=== PATIENT | male | born 1940 | race Caucasian/White ===

== ENCOUNTER → 2020-05-02 10:22 | Outpatient (CLI) | payer MEDICARE, BC, SELFPAY ==
--- NOTE | 2020-05-03 04:43 | DI.NM.S_ITS ---
DATE OF SERVICE: 05/02/2020 PROCEDURE: Exercise perfusion study. INDICATION: Ventricular tachycardia, CAD, hypertension, paroxysmal AFib. RADIOPHARMACEUTICAL: 25.4 millicurie technetium-99m Myoview IV was injected at stress and 11.5 millicurie technetium-99m Myoview IV was injected at rest. EXERCISE CARDIAC STRESS: The patient walked on [place] protocol for 3 minutes 17 seconds and achieved 90 percent of target heart rate. Baseline blood pressure 120/70. Peak blood pressure 200/80, suggestive of hypertensive response. The patient achieved 4.6 METS of workload. Functional aerobic impairment, positive 45 percent. No anginal symptoms. Baseline EKG revealed sinus rhythm with low- voltage complexes in chest leads and poor R-wave progression. During stress, no convincing ischemic changes were seen. Occasional PVCs were seen without any significant sustained arrhythmia. RAW DATA: There is increased subdiaphragmatic activity. Patient's weight is 225 pounds. GATED STUDY: Resting LV ejection fraction 73 percent and stress LV ejection fraction 80 percent without any significant wall motion abnormalities. Resting end-diastolic volume 104 mL. No transient ischemic dilatation. TID ratio 0.96, which is within normal limits. Lung/heart ratio 0.32, which is within normal limits. MYOCARDIAL PERFUSION: Stress supine and resting supine images revealed moderate- size, mildly decreased perfusion of inferior wall, inferior apex, which got completely resolved during prone images, suggestive of diaphragmatic tissue attenuation artifact. On prone images, no significant perfusion defects seen. CONCLUSION: I will call this study a normal myocardial perfusion study with evidence of diaphragmatic tissue attenuation artifact, which got resolved during prone images. Diminished exercise tolerance. Hypertensive blood pressure response. No significant sustained arrhythmias. No anginal symptoms. Nishant Kolb - VIJI/[facility]/court doc#: [id number]/job#: [id number] dd: 05/02/2020 17:24:00 dt: 05/03/2020 04:03:00 DICTATING MD/COPIES TO: Betty Braswell MD COPIES MNE: GIANNI;
== END ==
PROVIDERS: Referring Provider Internal Medicine Cardiovascular Disease; Visit Provider Internal Medicine Cardiovascular Disease
DX: I47.2 Ventricular tachycardia (principal); I25.10 Atherosclerotic heart disease of native coronary artery without angina pectoris; I48.0 Paroxysmal atrial fibrillation; I10 Essential (primary) hypertension
CPT/HCPCS: 78452; 93017; A9502

== ENCOUNTER → 2024-09-18 11:51 | Outpatient (CLI) | payer MEDICARE, BC, SELFPAY | PROVIDERS: PCP Specialist; Visit Provider Urology | DX: C61 Malignant neoplasm of prostate (principal); R39.9 Unspecified symptoms and signs involving the genitourinary system | CPT/HCPCS: 81002; 87086; 99213 ==